=== PATIENT | male | born 1940 | race African-American/Black ===

== ENCOUNTER 2021-02-05 10:49 | Emergency (ER) | payer MEDICARE, OTHER ==
[~2021-02-05] VITALS: Ht 177.8 cm; Wt 109.8 kg
[2021-02-05 11:17] LABS: BASOPHILS # (AUTO) 0.1 (0.0-0.1); BASOPHILS % 1.8 % (0.0-1.0); EOSINOPHILS # (AUTO) 0.3 (0.0-0.4); EOSINOPHILS % 6.9 % (0.0-6.0); HEMATOCRIT 41.2 % (38.2-49.6); HEMOGLOBIN 12.3 g/dL (14.0-18.0); LYMPHOCYTES # (AUTO) 1.4 (1.0-3.2); LYMPHOCYTES % 30.2 % (18.0-39.1); MEAN CORPUSCULAR HEMOGLOBIN 27.3 pg (28-32); MEAN CORPUSCULAR HGB CONC 29.9 g/dL (31-35); MEAN CORPUSCULAR VOLUME 91.6 fL (81-99); MONOCYTES # (AUTO) 0.6 (0.2-0.8); MONOCYTES % 13.5 % (4.4-11.3); NEUTROPHILS # (AUTO) 2.2 (2.1-6.9); NEUTROPHILS % 47.6 % (38.7-80.0); PLATELET COUNT 157 x10e3/uL (140-360); RED CELL DISTRIBUTION WIDTH 14.7 % (11.7-14.4)
[2021-02-05 11:38] LABS: ALBUMIN 3.4 g/dL (3.5-5.0); ALBUMIN/GLOBULIN RATIO 0.9 (0.8-2.0); ANION GAP 14.5 mmol/L (8-16); CALCIUM 8.9 mg/dL (8.4-10.2); CREATININE, SERUM 1.02 mg/dL (0.72-1.25); POTASSIUM 3.5 mmol/L (3.5-5.1)
== END 2021-02-05 12:48 | disposition home or self-care (01) ==
LOC: ER 11:00
DX: I47.9 Paroxysmal tachycardia, unspecified (principal); G30.9 Alzheimer's disease, unspecified; F02.80 Dementia in other diseases classified elsewhere, unspecified severity, without behavioral disturbance, psychotic disturbance, mood disturbance, and anxiety; E11.9 Type 2 diabetes mellitus without complications; R94.31 Abnormal electrocardiogram [ECG] [EKG]
CPT/HCPCS: 36415; 71045; 80053; 83880; 84484; 85025; 93005; 99284